=== PATIENT | male | born 1980 ===

== ENCOUNTER 2018-04-30 12:47 | Emergency (ER) | payer MEDICAID, OTHER ==
[2018-04-30 12:52] VITALS: BMI 24.3
[2018-04-30] MEDS ORDERED: Bacitracin 500 Units/gm Oint Foilpak UD TOP ONE (13:39)
[2018-04-30] MEDS ORDERED: Bacitracin 500 Units/gm Oint Foilpak UD ONE (13:48)
--- NOTE | 2018-04-30 13:51 | C.PDOC ---
Time Seen by Provider: 04/30/18 13:31 Chief Complaint (Nursing): Abnormal Skin Integrity History Per: Patient Onset/Duration Of Symptoms: Days (5) Current Symptoms Are (Timing): Still Present Location Of Injury: Right: Forearm Quality Of Symptoms: Painful, Swollen, Draining Severity: Moderate Additional History Per: Prior Records Past Medical History Reviewed: Historical Data, Nursing Documentation, Vital Signs Vital Signs: Last Vital Signs Temp 98.7 F 04/30/18 12:52 Pulse 106 H 04/30/18 12:52 Resp 20 04/30/18 12:52 BP 102/70 04/30/18 12:52 Pulse Ox 98 04/30/18 12:52 - Medical History PMH: Anxiety, Depression, Schizophrenia - [facility] Procedures VACCINATION NEC (10/31/14) Family History: States: Unknown Family Hx - Social History Hx Tobacco Use: Yes Hx Alcohol Use: Yes Hx Substance Use: Yes - Immunization History Hx Tetanus Toxoid Vaccination: No Hx Influenza Vaccination: No Hx Pneumococcal Vaccination: No Review Of Systems Except As Marked, All Systems Reviewed And Found Negative. Constitutional: Negative for: Fever, Weakness Cardiovascular: Negative for: Chest Pain Respiratory: Negative for: Shortness of Breath Gastrointestinal: Negative for: Vomiting, Abdominal Pain Musculoskeletal: Negative for: Neck Pain Neurological: Negative for: Weakness, Numbness Physical Exam - Physical Exam Appears: Non-toxic, No Acute Distress Skin: Warm Head: Atraumatic, Normacephalic Eye(s): bilateral: Normal Inspection, PERRL, EOMI Neck: Normal ROM, Supple Extremity: Normal ROM, Other (Boil on left forearm open, draining pus, with induration and surrounding erythema. No fluctuance.) Pulses: Left Radial: Normal Neurological/Psych: Oriented x3, Normal Motor, Normal Sensation ED Course And Treatment O2 Sat by Pulse Oximetry: 98 Pulse Ox Interpretation: Normal Disposition Counseled Patient/Family Regarding: Studies Performed, Diagnosis, Need For Followup, Rx Given - Disposition Disposition: HOME/ ROUTINE Disposition Time: 13:52 Condition: STABLE Additional Instructions: Follow up with your doctor. Return to the ER if you develop fever, worsening of symptoms or if you have any other concerns. Prescriptions: Cephalexin [Keflex] 500 mg PO QID #40 capsule Naproxen [Naprosyn] 1 tab PO BID PRN #20 tab PRN Reason: Pain Sulfamethoxazole/Trimethoprim [Bactrim DS 800 mg-160 mg] 1 tab PO BID #20 tab Instructions: Boil (DC) - Clinical Impression Clinical Impression: Boil of upper arm and forearm
[2018-04-30 14:07] VITALS: BP 126/83; PULSE 89; RESP 18; TEMP 98.3; O2SAT 97
== END 2018-04-30 13:55 | disposition home or self-care (01) ==
LOC: C.ER 12:47
DX: L02.424 Furuncle of left upper limb (principal)

== ENCOUNTER 2018-05-02 11:33 | Inpatient (IN) | payer MEDICAID ==
[2018-05-02 11:34] VITALS: BMI 24.3
[2018-05-02] MEDS ORDERED: Sodium Chloride 0.9% 1,000 ML IV ONE (12:05)
[2018-05-02] MEDS ORDERED: Vancomycin 1 GM 1 GM/250 ML BAG IV SCH (12:15)
[2018-05-02] MEDS ORDERED: Sodium Chloride 0.9% 1,000 ML ONE (12:27)
--- NOTE | 2018-05-02 12:29 | RAD ---
Date of service: 05/02/2018 HISTORY: SOB COMPARISON: Chest radiograph dated 11/26/2015. TECHNIQUE: Chest PA and lateral FINDINGS: LUNGS: No active pulmonary disease. PLEURA: No significant pleural effusion identified. No pneumothorax apparent. CARDIOVASCULAR: Normal. OSSEOUS STRUCTURES: No significant abnormalities. VISUALIZED UPPER ABDOMEN: Normal. OTHER FINDINGS: None. IMPRESSION: No active disease.
--- NOTE | 2018-05-02 12:35 | RAD ---
Date of service: 05/02/2018 PROCEDURE: Radiographs of the right elbow. HISTORY: cellulitis COMPARISON: No prior. FINDINGS: BONES: No acute fracture. Triceps tendon enthesophyte. JOINTS: Unremarkable. SOFT TISSUES: Soft tissue defect along the posterior proximal forearm. JOINT EFFUSION: None. OTHER FINDINGS: None. IMPRESSION: Soft tissue defect along the posterior proximal forearm. No demonstrated fracture, dislocation or evidence of periosteal reaction.
[2018-05-02 12:36] LABS: BASO % 0.6 % (0.0-2.0); EOS # 0.1 K/uL (0.0-0.7); EOS % 1.6 % (0.0-4.0); LYMPH # 1.2 K/uL (1.0-4.3); LYMPH % 21.3 % (20.0-40.0); MEAN CORPUSCULAR HEMOGLOBIN 30.2 pg (27.0-31.0); MEAN CORPUSCULAR HGB CONC 33.9 g/dL (33.0-37.0); MEAN PLATELET VOLUME 8.8 fL (7.2-11.7); MONO # 0.7 K/uL (0.0-0.8); NEUT # 3.6 K/uL (1.8-7.0); NEUT % 64.5 % (50.0-75.0); NRBC % 0.1 % (0.0-2.0); RBC 5.3 Mil/uL (4.40-5.90); RED CELL DISTRIBUTION WIDTH 13.5 % (11.5-14.5); WHITE BLOOD COUNT 5.5 K/uL (4.8-10.8)
[2018-05-02 12:40] LABS: SQUAMOUS EPITHIAL < 1 /hpf (0-5); URINE BILIRUBIN NEGATIVE (NEGATIVE); URINE BLOOD NEGATIVE (NEGATIVE); URINE CLARITY Clear (Clear); URINE COLOR Yellow (YELLOW); URINE GLUCOSE (UA) NORMAL (Normal); URINE LEUKOCYTE ESTERASE NEG Leu/uL (Negative); URINE PROTEIN 1+ mg/dL (NEGATIVE)
[2018-05-02 12:41] LABS: ALB/GLOB RATIO 1.3 (1.0-2.1); ALBUMIN 4.5 g/dL (3.5-5.0); ALT/SGPT 54 U/L (21-72); AST/SGOT 31 U/L (17-59); BLOOD UREA NITROGEN 11 mg/dL (9-20); CALCIUM 9.1 mg/dl (8.6-10.4); GFR AFRICAN-AMERICAN > 60; GFR NON-AFRICAN AMERICAN > 60
--- NOTE | 2018-05-02 12:41 | C.PDOC ---
History Of Present Illness 38-year-old male, presents to the emergency department with complaints of increased swelling and redness to the right elbow. Patient was seen two days ago , diagnosed with cellulitis of right elbow and discharged on Bactrim and Keflex , which he has been taking but notes increase redness, swelling and chills. Patient also developed diarrhea today, prompting visit. Time Seen by Provider: 05/02/18 11:58 Chief Complaint (Nursing): Abdominal Pain History Per: Patient History/Exam Limitations: no limitations Onset/Duration Of Symptoms: Days Current Symptoms Are (Timing): Still Present Severity: Moderate Quality Of Discomfort: Aching Associated Symptoms: Chills Recent travel outside of the [place]: No Past Medical History Reviewed: Historical Data, Nursing Documentation, Vital Signs Vital Signs: Last Vital Signs Temp 98 F 05/02/18 16:19 Pulse 75 05/02/18 16:19 Resp 20 05/02/18 16:19 BP 133/67 05/02/18 16:19 Pulse Ox 98 05/02/18 16:19 - Medical History PMH: Anxiety, Depression, Schizophrenia - [facility] Procedures VACCINATION NEC (10/31/14) Family History: States: No Known Family Hx - Social History Hx Tobacco Use: Yes Hx Alcohol Use: Yes Hx Substance Use: Yes - Immunization History Hx Tetanus Toxoid Vaccination: No Hx Influenza Vaccination: No Hx Pneumococcal Vaccination: No Review Of Systems Constitutional: Positive for: Chills. Negative for: Fever Gastrointestinal: Positive for: Diarrhea. Negative for: Nausea, Vomiting Physical Exam - Physical Exam Appears: Non-toxic, No Acute Distress Skin: Warm, Dry, No Rash, Other ( swelling and 3cm ulcer with surrounding erythema ascending to the upper arm consistent with cellulitis) Head: Atraumatic, Normacephalic Eye(s): bilateral: Normal Inspection, PERRL, EOMI Nose: Normal Oral Mucosa: Moist Lips: Normal Appearing Neck: Normal ROM Chest: Symmetrical Cardiovascular: Rhythm Regular, No Murmur Respiratory: Normal Breath Sounds, No Accessory Muscle Use Gastrointestinal/Abdominal: Normal Exam, No Tenderness Extremity: Normal ROM, No Deformity, Swelling (right elbow) Neurological/Psych: Oriented x3, Normal Speech ED Course And Treatment - Laboratory Results Result Diagrams: 05/02/18 12:22 05/02/18 12:22 Lab Interpretation: Normal O2 Sat by Pulse Oximetry: 98 (RA) Pulse Ox Interpretation: Normal Progress Note: Treated with vancomycin IV and IVF NSS Reassessment Condition: Improved - Physician Consult Information Physician Contacted: Елена Hanson Outcome Of Conversation: admit Disposition Discussed With : Елена Hnason Doctor Will See Patient In The: Hospital - Disposition Disposition: HOSPITALIZED Disposition Time: 14:00 Condition: STABLE - POA Present On Arrival: None - Clinical Impression Clinical Impression: Cellulitis, Boil of upper arm and forearm - Scribe Statement The provider has reviewed the documentation as recorded by the Scribe (Rossana Barbosa) All medical record entries made by the Scribe were at my direction and personally dictated by me. I have reviewed the chart and agree that the record accurately reflects my personal performance of the history, physical exam, medical decision making, and the department course for this patient. I have also personally directed, reviewed, and agree with the discharge instructions and disposition. Decision To Admit - Pt Status Changed To: Hospital Disposition Of: Inpatient - Admit Certification Admit to Inpatient:: After my assessment, the patient will require hospitalization for at least two midnights. This is because of the severity of symptoms shown, intensity of services needed, and/or the medical risk in this patient being treated as an outpatient. - InPatient: Physician Admission Certification:: Cellulitis. Failed antibiotics - . Bed Request Type: Regular Admitting Physician: Елена Hanson Patient Diagnosis: Cellulitis, Boil of upper arm and forearm
[2018-05-02] MEDS ORDERED: Vancomycin 1 gm/NS 200 ml 1 GM/200 ML BAG IVPB ONE (13:00)
[2018-05-02] MEDS ORDERED: Pneumococcal 23-Valent Vaccine IM ONE (17:04)
--- NOTE | 2018-05-02 17:08 | CP.PCM.CON ---
History of Present Illness - History of Present Illness History of Present Illness: INFECTIOUS DISEASE CONSULT; CC: R elbow abscess HPI: 38M w. pmh of asthma, herniated disk L4-L5, and extensive psych hx , depression and schizophrenia and anxiety problems who presents to ED with worsening abscess /cellulitis to R elbow. Pt states that on April 25 he was cleaning out house and was bit by bug on R elbow. But bite eventually evolved from pimple like bump to cellulitis with accompanied swelling extending down to hand. He states that it was very painful and prompted him to come to ED on 04/30/18 where he was given Bactrim and Keflex. The swelling/edema in his hand resolved, however abscess developed in elbow draining pus prompting him to return to hospital today. He denies F/C. No N/V. He denies numbness parethesias in his hand. wound cultures reported from 04/30/18 are positive for MRSA. INFECTIOUS DISEASE CONSULT REQUESTED BY DR. Tiffany VELASCO FOR MRSA ABSCESS-RIGHT ELBOW. PATIENT DENIES ANY FEVER OR CHILLS. PMH: Anxiety, Depression, Schizophrenia - [facility] Procedures VACCINATION NEC (10/31/14) Family History: States: No Known Family Hx - Social History Hx Tobacco Use: Yes Hx Alcohol Use: Yes Hx Substance Use: Yes - Immunization History Hx Tetanus Toxoid Vaccination: No Hx Influenza Vaccination: No Hx Pneumococcal Vaccination: No Review of Systems - Constitutional Constitutional: absent: Chills, Fever - EENT Nose/Mouth/Throat: absent: Sore Throat - Cardiovascular Cardiovascular: absent: Chest Pain, Dyspnea - Respiratory Respiratory: absent: Cough - Gastrointestinal Gastrointestinal: absent: Diarrhea, Nausea, Vomiting - Genitourinary Genitourinary: absent: Dysuria - Neurological Neurological: absent: Headaches - Hematologic/Lymphatic Hematologic: As Per HPI. absent: Easy Bruising, Lymphadenopathy Past Patient History - Past Medical History & Family History Past Medical History?: Yes - Past Social History Smoking Status: Heavy Smoker > 10 Cigarettes Daily - CARDIAC Hx Cardiac Disorders: No Hx Hypertension: No - PULMONARY Hx Respiratory Disorders: Yes Hx Asthma: Yes Hx Tuberculosis: No - NEUROLOGICAL Hx Neurological Disorder: Yes Hx Seizures: Yes (due to ETOH) Other/Comment: ETOH, last drink 04/25/18 as per pt - HEENT Hx HEENT Problems: No - RENAL Hx Chronic Kidney Disease: No - ENDOCRINE/METABOLIC Hx Endocrine Disorders: No - HEMATOLOGICAL/ONCOLOGICAL Hx Blood Disorders: No Hx Human Immunodeficiency Virus (HIV): No - INTEGUMENTARY Hx Dermatological Problems: Yes Hx Cellulitis: Yes (Right elbow) - MUSCULOSKELETAL/RHEUMATOLOGICAL Hx Musculoskeletal Disorders: Yes Hx Arthritis: Yes (B/L knees) Hx Back Pain: Yes (herniated disks L4-L5) Hx Falls: Yes (has bad knees) - GASTROINTESTINAL Hx Gastrointestinal Disorders: Yes Hx Diarrhea: Yes - GENITOURINARY/GYNECOLOGICAL Hx Genitourinary Disorders: No Hx Sexually Transmitted Disorders: No - PSYCHIATRIC Hx Psychophysiologic Disorder: Yes Hx Anxiety: Yes Hx Bipolar Disorder: Yes Hx Depression: Yes Hx Post Traumatic Stress Disorder: Yes Hx Schizophrenia: Yes Hx Substance Use: Yes (ETOH) - SURGICAL HISTORY Hx Surgeries: No - ANESTHESIA Hx Anesthesia: No Meds Allergies/Adverse Reactions: Allergies Allergy/AdvReac Type Severity Reaction Status Date / Time No Known Allergies Allergy Verified 11/26/15 14:44 - Medications Medications: Current Medications Albuterol/Ipratropium (Duoneb 3 Mg/0.5 Mg (3 Ml) Ud) 3 ml INH RQ6 SOTO Diphenhydramine HCl (Benadryl) 50 mg PO Q6 PRN PRN Reason: Extra pyramidal symptoms Fluoxetine HCl (Prozac) 20 mg PO DAILY SOTO Haloperidol (Haldol) 5 mg PO Q8 PRN PRN Reason: Agitation Vancomycin/Sodium Chloride (Vancomycin 1 Gm/Ns 200 Ml) 1 gm in 200 mls @ 133.333 mls/hr IVPB Q12H SOTO PRN Reason: Protocol Stop: 05/07/18 17:01 Nicotine (Nicoderm Cq) 1 patch TD DAILY SOTO Pantoprazole Sodium (Protonix Inj) 40 mg IVP DAILY [facility] Pneumococcal Polyvalent Vaccine (Pneumovax 23 Vaccine) 0.5 ml IM .ONCE ONE Stop: 05/02/18 17:05 Trazodone HCl (Desyrel) 50 mg PO HS SOTO Physical Exam - Constitutional Appears: No Acute Distress - Eye Exam Eye Exam: EOMI, PERRL - ENT Exam ENT Exam: Normal Oropharynx - Neck Exam Neck exam: Positive for: Normal Inspection - Respiratory Exam Respiratory Exam: Clear to Auscultation Bilateral - Cardiovascular Exam Cardiovascular Exam: REGULAR RHYTHM, +S1, +S2 - GI/Abdominal Exam GI & Abdominal Exam: Normal Bowel Sounds, Soft. absent: Organomegaly, Tenderness - Extremities Exam Extremities exam: Positive for: normal capillary refill (RIGHT ELBOW WITH AN ULCER DRAINING SEROSANGUINEOUS DRAINAGE. SURROUNDING ERYTHEMA), pedal pulses present. Negative for: calf tenderness, pedal edema - Neurological Exam Neurological exam: Alert, CN II-XII Intact, Oriented x3, Reflexes Normal - Psychiatric Exam Psychiatric exam: Normal Mood - Skin Skin Exam: Normal Color, Warm Results - Vital Signs Recent Vital Signs: Last Vital Signs Temp 98 F 05/02/18 16:19 Pulse 75 05/02/18 16:19 Resp 20 05/02/18 16:19 BP 133/67 05/02/18 16:19 Pulse Ox 98 05/02/18 16:19 - Labs Result Diagrams: 05/02/18 12:22 05/02/18 12:22 Labs: Laboratory Results - last 24 hr 05/02/18 05/02/18 05/02/18 12:22 12:22 12:27 WBC 5.5 RBC 5.30 Hgb 16.0 Hct 47.1 MCV 89.0 D MCH 30.2 MCHC 33.9 RDW 13.5 Plt Count 209 MPV 8.8 Neut % (Auto) 64.5 Lymph % (Auto) 21.3 [place] % (Auto) 12.0 H Eos % (Auto) 1.6 Baso % (Auto) 0.6 Neut # (Auto) 3.6 Lymph # (Auto) 1.2 [place] # (Auto) 0.7 Eos # (Auto) 0.1 Baso # (Auto) 0.0 Sodium 143 Potassium 4.3 Chloride 104 Carbon Dioxide 24 Anion Gap 19 BUN 11 Creatinine 0.9 Est GFR ( Amer) > 60 Est GFR (Non-Af Amer) > 60 Random Glucose 109 Calcium 9.1 Total Bilirubin 0.8 AST 31 ALT 54 Alkaline Phosphatase 86 Total Protein 7.8 Albumin 4.5 Globulin 3.3 Albumin/Globulin Ratio 1.3 Urine Color Yellow Urine Clarity Clear Urine pH 5.0 Ur Specific [place] 1.028 Urine Protein 1+ H Urine Glucose (UA) Normal Urine Ketones Negative Urine Blood Negative Urine Nitrate Negative Urine Bilirubin Negative Urine Urobilinogen 4.0 Ur Leukocyte Esterase Neg Urine WBC (Auto) < 1 Urine RBC (Auto) 1 Ur Squamous Epith Cells < 1 - Imaging and Cardiology x-ray elbow right Status: Report reviewed by me Assessment & Plan (1) Boil of upper arm and forearm Status: Acute (2) Cellulitis Status: Acute (3) Depression Status: Acute (4) Musculoskeletal pain Status: Acute - Assessment and Plan (Free Text) Plan: pancultures. wound cultures right elbow ulcer. mrsa screen nares ESR CRP. THREE-PHASE BONE SCAN RIGHT ELBOW FOREARM R/O OSTEOMYELITIS CONTINUE iv VANCOMYCIN 1 G EVERY 12 HOURLY 05/02/18. ADD iv ROCEPHIN 1 G EVERY 24 HOURLY FOR NOW 05/02/18 WHILE AWAITING REPEAT CULTURES. fOLLOW-UP VANCO TROUGH LEVELS PRIOR TO THE FOURTH DOSE AND KEEP THEM BETWEEN 10 AND 20. SURGICAL CONSULT IN PROGRESS. LWC PER SURGERY. tdap 0.5 mL IM today. WILL FOLLOW ALONG WITH YOU AND MAKE FURTHER RECOMMENDATIONS NEEDED.
[2018-05-02] MEDS: Vancomycin 1 gm/NS 200 ml 1 GM/200 ML BAG IVPB SCH (17:34)
--- NOTE | 2018-05-02 18:38 | CP.PCM.CON ---
History of Present Illness - History of Present Illness History of Present Illness: Surgery: Dr. Damian CC: R elbow abscess HPI: 38M w. pmh of asthma, herniated disk L4-L5, and extensive psych hx presents to ED with worsening abscess/cellulitis to R elbow. Pt states that on April 25 he was cleaning out house and was bit by bug on R elbow. But bite eventually evolved from pimple like bump to cellulitis with accompanied swelling extending down to hand. He states that it was very painful and prompted him to come to ED this past monday where he was given Bactrim and Keflex. The swelling/edema in his hand resolved, however abscess developed in elbow draining pus prompting him to return to hospital today. He denies F/C. No N/V. He denies numbness parethesias in his hand. PMH: See above PSH: none Meds: MAR reviewed NKDA SOcial: +ETOH/tobaco, no drugs Fhx: non-contributory Review of Systems - Review of Systems All systems: reviewed and no additional remarkable complaints except (HPI) Past Patient History - Past Medical History & Family History Past Medical History?: Yes - Past Social History Smoking Status: Heavy Smoker > 10 Cigarettes Daily - CARDIAC Hx Cardiac Disorders: No Hx Hypertension: No - PULMONARY Hx Respiratory Disorders: Yes Hx Asthma: Yes Hx Tuberculosis: No - NEUROLOGICAL Hx Neurological Disorder: Yes Hx Seizures: Yes (due to ETOH) Other/Comment: ETOH, last drink 04/25/18 as per pt - HEENT Hx HEENT Problems: No - RENAL Hx Chronic Kidney Disease: No - ENDOCRINE/METABOLIC Hx Endocrine Disorders: No - HEMATOLOGICAL/ONCOLOGICAL Hx Blood Disorders: No Hx Human Immunodeficiency Virus (HIV): No - INTEGUMENTARY Hx Dermatological Problems: Yes Hx Cellulitis: Yes (Right elbow) - MUSCULOSKELETAL/RHEUMATOLOGICAL Hx Musculoskeletal Disorders: Yes Hx Arthritis: Yes (B/L knees) Hx Back Pain: Yes (herniated disks L4-L5) Hx Falls: Yes (has bad knees) - GASTROINTESTINAL Hx Gastrointestinal Disorders: Yes Hx Diarrhea: Yes - GENITOURINARY/GYNECOLOGICAL Hx Genitourinary Disorders: No Hx Sexually Transmitted Disorders: No - PSYCHIATRIC Hx Anxiety: Yes Hx Depression: Yes Hx Schizophrenia: Yes Hx Substance Use: Yes - SURGICAL HISTORY Hx Surgeries: No - ANESTHESIA Hx Anesthesia: No Meds Allergies/Adverse Reactions: Allergies Allergy/AdvReac Type Severity Reaction Status Date / Time No Known Allergies Allergy Verified 11/26/15 14:44 - Medications Medications: Current Medications Albuterol/Ipratropium (Duoneb 3 Mg/0.5 Mg (3 Ml) Ud) 3 ml INH RQ6 SOTO Diphenhydramine HCl (Benadryl) 50 mg PO Q6 PRN PRN Reason: Extra pyramidal symptoms Fluoxetine HCl (Prozac) 20 mg PO DAILY SOTO Haloperidol (Haldol) 5 mg PO Q8 PRN PRN Reason: Agitation Vancomycin/Sodium Chloride (Vancomycin 1 Gm/Ns 200 Ml) 1 gm in 200 mls @ 133.333 mls/hr IVPB Q12H SOTO PRN Reason: Protocol Stop: 05/07/18 17:01 Last Admin: 05/02/18 17:34 Dose: 133.333 mls/hr Ceftriaxone Sodium 1 gm/ (Sodium Chloride) 100 mls @ 100 mls/hr IVPB Q24H SOTO PRN Reason: Protocol Nicotine (Nicoderm Cq) 1 patch TD DAILY [facility] Last Admin: 05/02/18 17:45 Dose: 1 patch Pantoprazole Sodium (Protonix Inj) 40 mg IVP DAILY [facility] Last Admin: 05/02/18 17:45 Dose: 40 mg Trazodone HCl (Desyrel) 50 mg PO HS [facility] Physical Exam - Constitutional Appears: Non-toxic, No Acute Distress - Head Exam Head Exam: ATRAUMATIC, NORMOCEPHALIC - Eye Exam Eye Exam: EOMI - ENT Exam ENT Exam: Mucous Membranes Moist - Neck Exam Neck exam: Positive for: Full Rom - Respiratory Exam Respiratory Exam: NORMAL BREATHING PATTERN. absent: Accessory Muscle Use, Respiratory Distress - GI/Abdominal Exam GI & Abdominal Exam: Soft. absent: Distended, Firm, Guarding, Tenderness - Extremities Exam Additional comments: R elbow abscess ~1x1 cm with surrounding cellulitis and erythema, tender to touch, thick purulent material expressed on palpation, no odor, majority of exudate removed from wound site, sensation and motor fxn intact in distal extremity, distal pulses palpable - Neurological Exam Neurological exam: Alert, Oriented x3 - Skin Skin Exam: Dry, Warm Results - Vital Signs Recent Vital Signs: Last Vital Signs Temp 98 F 05/02/18 16:19 Pulse 75 05/02/18 16:19 Resp 20 05/02/18 16:19 BP 133/67 05/02/18 16:19 Pulse Ox 98 05/02/18 18:02 - Labs Result Diagrams: 05/02/18 12:22 05/02/18 12:22 Labs: Laboratory Results - last 24 hr 05/02/18 05/02/18 05/02/18 12:22 12:22 12:27 WBC 5.5 RBC 5.30 Hgb 16.0 Hct 47.1 MCV 89.0 D MCH 30.2 MCHC 33.9 RDW 13.5 Plt Count 209 MPV 8.8 Neut % (Auto) 64.5 Lymph % (Auto) 21.3 [place] % (Auto) 12.0 H Eos % (Auto) 1.6 Baso % (Auto) 0.6 Neut # (Auto) 3.6 Lymph # (Auto) 1.2 [place] # (Auto) 0.7 Eos # (Auto) 0.1 Baso # (Auto) 0.0 Sodium 143 Potassium 4.3 Chloride 104 Carbon Dioxide 24 Anion Gap 19 BUN 11 Creatinine 0.9 Est GFR ( Amer) > 60 Est GFR (Non-Af Amer) > 60 Random Glucose 109 Calcium 9.1 Total Bilirubin 0.8 AST 31 ALT 54 Alkaline Phosphatase 86 Total Protein 7.8 Albumin 4.5 Globulin 3.3 Albumin/Globulin Ratio 1.3 Urine Color Yellow Urine Clarity Clear Urine pH 5.0 Ur Specific [place] 1.028 Urine Protein 1+ H Urine Glucose (UA) Normal Urine Ketones Negative Urine Blood Negative Urine Nitrate Negative Urine Bilirubin Negative Urine Urobilinogen 4.0 Ur Leukocyte Esterase Neg Urine WBC (Auto) < 1 Urine RBC (Auto) 1 Ur Squamous Epith Cells < 1 Assessment & Plan - Assessment and Plan (Free Text) Assessment: 38M w. R elbow abscess/cellulitis -wet to dry dressing with betadine -c/w abx -will monitor closely -d/w attending Zemaitis PGY4
[2018-05-02] MEDS ORDERED: Tdap Vaccine 0.5 ml Vial (10-64 yrs) IM ONE (19:15)
[2018-05-02] MEDS: Albuterol-Ipratrop 3 mg / 0.5 (3 ml) UD INH SCH (20:36)
--- NOTE | 2018-05-02 20:45 | CP.PCM.HP ---
History of Present Illness - History of Present Illness History of Present Illness: CC: R elbow abscess HPI: 38M w. pmh of asthma, herniated disk L4-L5, and extensive psych hx presents to ED with worsening abscess/cellulitis to R elbow. Pt states that on April 25 he was cleaning out house and was bit by bug on R elbow. But bite eventually evolved from pimple like bump to cellulitis with accompanied swelling extending down to hand. He states that it was very painful and prompted him to come to ED this past monday where he was given Bactrim and Keflex. culture showed mrsa sensitive to bactrim but didnot get better.The swelling/edema in his hand resolved, however abscess developed in elbow draining pus prompting him to return to hospital today. He denies F/C. No N/V. He denies numbness parethesias in his hand. PMH: See above PSH: none Meds: MAR reviewed NKDA SOcial: +ETOH/tobaco, no drugs Fhx: non-contributory Past Patient History - Past Medical History & Family History Past Medical History?: Yes - Past Social History Smoking Status: Heavy Smoker > 10 Cigarettes Daily - CARDIAC Hx Cardiac Disorders: No Hx Hypertension: No - PULMONARY Hx Respiratory Disorders: Yes Hx Asthma: Yes Hx Tuberculosis: No - NEUROLOGICAL Hx Neurological Disorder: Yes Hx Seizures: Yes (due to ETOH) Other/Comment: ETOH, last drink 04/25/18 as per pt - HEENT Hx HEENT Problems: No - RENAL Hx Chronic Kidney Disease: No - ENDOCRINE/METABOLIC Hx Endocrine Disorders: No - HEMATOLOGICAL/ONCOLOGICAL Hx Blood Disorders: No Hx Human Immunodeficiency Virus (HIV): No - INTEGUMENTARY Hx Dermatological Problems: Yes Hx Cellulitis: Yes (Right elbow) - MUSCULOSKELETAL/RHEUMATOLOGICAL Hx Musculoskeletal Disorders: Yes Hx Arthritis: Yes (B/L knees) Hx Back Pain: Yes (herniated disks L4-L5) Hx Falls: Yes (has bad knees) - GASTROINTESTINAL Hx Gastrointestinal Disorders: Yes Hx Diarrhea: Yes - GENITOURINARY/GYNECOLOGICAL Hx Genitourinary Disorders: No Hx Sexually Transmitted Disorders: No - PSYCHIATRIC Hx Psychophysiologic Disorder: Yes Hx Anxiety: Yes Hx Bipolar Disorder: Yes Hx Depression: Yes Hx Post Traumatic Stress Disorder: Yes Hx Schizophrenia: Yes Hx Substance Use: Yes (ETOH) - SURGICAL HISTORY Hx Surgeries: No - ANESTHESIA Hx Anesthesia: No Meds Allergies/Adverse Reactions: Allergies Allergy/AdvReac Type Severity Reaction Status Date / Time No Known Allergies Allergy Verified 11/26/15 14:44 Physical Exam - Constitutional Appears: Well - Head Exam Head Exam: ATRAUMATIC, NORMAL INSPECTION, NORMOCEPHALIC - Eye Exam Eye Exam: EOMI, Normal appearance, PERRL Pupil Exam: NORMAL ACCOMODATION, PERRL - ENT Exam ENT Exam: Mucous Membranes Moist, Normal Exam - Neck Exam Neck exam: Positive for: Normal Inspection - Respiratory Exam Respiratory Exam: Decreased Breath Sounds - Cardiovascular Exam Cardiovascular Exam: REGULAR RHYTHM, +S1, +S2 - GI/Abdominal Exam GI & Abdominal Exam: Diminished Bowel Sounds, Soft - Rectal Exam Rectal Exam: Deferred Results - Vital Signs Recent Vital Signs: Last Vital Signs Temp 98 F 05/02/18 16:19 Pulse 70 05/02/18 20:36 Resp 20 05/02/18 16:19 BP 133/67 05/02/18 16:19 Pulse Ox 98 05/02/18 18:02 - Labs Result Diagrams: 05/02/18 12:22 05/02/18 12:22 Labs: Laboratory Results - last 24 hr 05/02/18 05/02/18 05/02/18 12:22 12:22 12:27 WBC 5.5 RBC 5.30 Hgb 16.0 Hct 47.1 MCV 89.0 D MCH 30.2 MCHC 33.9 RDW 13.5 Plt Count 209 MPV 8.8 Neut % (Auto) 64.5 Lymph % (Auto) 21.3 [place] % (Auto) 12.0 H Eos % (Auto) 1.6 Baso % (Auto) 0.6 Neut # (Auto) 3.6 Lymph # (Auto) 1.2 [place] # (Auto) 0.7 Eos # (Auto) 0.1 Baso # (Auto) 0.0 Sodium 143 Potassium 4.3 Chloride 104 Carbon Dioxide 24 Anion Gap 19 BUN 11 Creatinine 0.9 Est GFR ( Amer) > 60 Est GFR (Non-Af Amer) > 60 Random Glucose 109 Calcium 9.1 Total Bilirubin 0.8 AST 31 ALT 54 Alkaline Phosphatase 86 Total Protein 7.8 Albumin 4.5 Globulin 3.3 Albumin/Globulin Ratio 1.3 Urine Color Yellow Urine Clarity Clear Urine pH 5.0 Ur Specific [place] 1.028 Urine Protein 1+ H Urine Glucose (UA) Normal Urine Ketones Negative Urine Blood Negative Urine Nitrate Negative Urine Bilirubin Negative Urine Urobilinogen 4.0 Ur Leukocyte Esterase Neg Urine WBC (Auto) < 1 Urine RBC (Auto) 1 Ur Squamous Epith Cells < 1
[2018-05-03] MEDS: Albuterol-Ipratrop 3 mg / 0.5 (3 ml) UD INH SCH ×4 (02:13→19:44)
[2018-05-03] MEDS: Vancomycin 1 gm/NS 200 ml 1 GM/200 ML BAG IVPB SCH ×2 (05:28→18:05)
[2018-05-03 08:54] LABS: BASO % 0.4 % (0.0-2.0); EOS # 0.1 K/uL (0.0-0.7); EOS % 0.6 % (0.0-4.0); HEMOGLOBIN 14.4 g/dL (12.0-18.0); LYMPH # 1.1 K/uL (1.0-4.3); LYMPH % 12.8 % (20.0-40.0); MEAN CELL VOLUME 88.5 fL (80.0-94.0); MEAN CORPUSCULAR HEMOGLOBIN 30.6 pg (27.0-31.0); MEAN CORPUSCULAR HGB CONC 34.5 g/dL (33.0-37.0); MONO # 0.8 K/uL (0.0-0.8); MONO % 8.6 % (0.0-10.0); NEUT # 6.8 K/uL (1.8-7.0); NEUT % 77.6 % (50.0-75.0); RBC 4.71 Mil/uL (4.40-5.90); RED CELL DISTRIBUTION WIDTH 13.4 % (11.5-14.5); WHITE BLOOD COUNT 8.8 K/uL (4.8-10.8)
[2018-05-03 09:13] LABS: BLOOD UREA NITROGEN 8 mg/dL (9-20); CALCIUM 8.8 mg/dl (8.6-10.4); GFR AFRICAN-AMERICAN > 60; GFR NON-AFRICAN AMERICAN > 60
--- NOTE | 2018-05-03 14:05 | CP.PCM.PN ---
Subjective - Date & Time of Evaluation Date of Evaluation: 05/03/18 Time of Evaluation: 10:00 - Subjective Subjective: clinically same Objective - Vital Signs/Intake and Output Vital Signs (last 24 hours): Temp Pulse Resp BP Pulse Ox 99.7 F H 85 20 129/75 97 05/03/18 07:00 05/03/18 07:00 05/03/18 07:00 05/03/18 07:00 05/03/18 07:00 - Medications Medications: Current Medications Albuterol/Ipratropium (Duoneb 3 Mg/0.5 Mg (3 Ml) Ud) 3 ml INH RQ6 SOTO Last Admin: 05/03/18 07:52 Dose: 3 ml Diphenhydramine HCl (Benadryl) 50 mg PO Q6 PRN PRN Reason: Extra pyramidal symptoms Fluoxetine HCl (Prozac) 20 mg PO DAILY [facility] Last Admin: 05/03/18 10:04 Dose: 20 mg Haloperidol (Haldol) 5 mg PO Q8 PRN PRN Reason: Agitation Heparin Sodium (Porcine) (Heparin) 5,000 units SC Q12 SOTO Last Admin: 05/03/18 10:04 Dose: 5,000 units Vancomycin/Sodium Chloride (Vancomycin 1 Gm/Ns 200 Ml) 1 gm in 200 mls @ 133.333 mls/hr IVPB Q12H SOTO PRN Reason: Protocol Stop: 05/07/18 17:01 Last Admin: 05/03/18 05:28 Dose: 133.333 mls/hr Ceftriaxone Sodium 1 gm/ (Sodium Chloride) 100 mls @ 100 mls/hr IVPB Q24H SOTO PRN Reason: Protocol Last Admin: 05/02/18 19:22 Dose: 100 mls/hr Nicotine (Nicoderm Cq) 1 patch TD DAILY [facility] Last Admin: 05/03/18 10:04 Dose: 1 patch Pantoprazole Sodium (Protonix Inj) 40 mg IVP DAILY [facility] Last Admin: 05/03/18 10:04 Dose: 40 mg Trazodone HCl (Desyrel) 50 mg PO HS [facility] Last Admin: 05/02/18 21:36 Dose: 50 mg - Labs Labs: 05/03/18 08:32 05/03/18 08:42 - Constitutional Appears: Well - Head Exam Head Exam: ATRAUMATIC, NORMAL INSPECTION, NORMOCEPHALIC - Eye Exam Eye Exam: EOMI, Normal appearance, PERRL Pupil Exam: NORMAL ACCOMODATION, PERRL - ENT Exam ENT Exam: Mucous Membranes Moist, Normal Exam - Neck Exam Neck Exam: Full ROM, Normal Inspection. absent: Lymphadenopathy - Respiratory Exam Respiratory Exam: Decreased Breath Sounds - Cardiovascular Exam Cardiovascular Exam: REGULAR RHYTHM, +S1, +S2 - GI/Abdominal Exam GI & Abdominal Exam: Soft, Diminished Bowel Sounds - Rectal Exam Rectal Exam: Deferred
--- NOTE | 2018-05-03 14:56 | NM ---
Date of service: 05/03/2018 PROCEDURE: Three-phase bone scan HISTORY: rt.elbow ulcer r/o om COMPARISON: May 02, 2018. Right elbow radiographs TECHNIQUE: Following administration of 21.6 miCu of Tc MDP three-phase study performed attention right elbow per institutional protocol. FINDINGS: Flow component: Unremarkable Blood pool component: Focal accumulation of radionuclide in the soft tissues is lateral aspect of the elbow and posterior forearm. Delayed images at 3:00: Symmetric activity in both upper extremities Other findings: None. IMPRESSION: No evidence of acute osseous process. No evidence of osteomyelitis. There soft tissue uptake adjacent to the proximal right radius and ulna.
--- NOTE | 2018-05-03 15:06 | CP.PCM.PN ---
Subjective - Date & Time of Evaluation Date of Evaluation: 05/03/18 Time of Evaluation: 09:00 - Subjective Subjective: PGY2 Medicine Note for Dr. Tiffany Hanson Patient is a 38 year old with a past medical history of asthma, herniated disk L4-L5, depression, schizophrenia and anxiety presenting for worsening cellulitis of his right elbow. He states that he was cleaning his aunt's house on April 25 and was bit by a bug on his R elbow. He believes it was a Brown Recluse Spider as his aunt has attempted to kill them in the past and he found brown spiders in her attic. He was seen in the ED on Monday and was treated with Bactrim and Keflex. Patient states that he has noticed increased redness, swelling and formation of an abscess that caused him to come back to the hospital. He also reports diarrhea. He denies fevers, chills, nausea, vomiting, chest pain, shortness of breath, palpitations, abdominal pain, numbness or tingling. PMH: asthma, herniated disk L4-L5, depression, schizophrenia and anxiety PSH: none Family: non-contributory Social: admits to tobacco/alcohol, denies illicit drug use Allergies: NKDA Objective - Vital Signs/Intake and Output Vital Signs (last 24 hours): Temp Pulse Resp BP Pulse Ox 99.7 F H 85 20 129/75 97 05/03/18 07:00 05/03/18 07:00 05/03/18 07:00 05/03/18 07:00 05/03/18 07:00 Intake and Output: 05/03/18 05/03/18 06:59 18:59 Intake Total 400 Balance 400 - Medications Medications: Current Medications Albuterol/Ipratropium (Duoneb 3 Mg/0.5 Mg (3 Ml) Ud) 3 ml INH RQ6 SOTO Last Admin: 05/03/18 14:05 Dose: Not Given Diphenhydramine HCl (Benadryl) 50 mg PO Q6 PRN PRN Reason: Extra pyramidal symptoms Fluoxetine HCl (Prozac) 20 mg PO DAILY [facility] Last Admin: 05/03/18 10:04 Dose: 20 mg Haloperidol (Haldol) 5 mg PO Q8 PRN PRN Reason: Agitation Heparin Sodium (Porcine) (Heparin) 5,000 units SC Q12 SOTO Last Admin: 05/03/18 10:04 Dose: 5,000 units Vancomycin/Sodium Chloride (Vancomycin 1 Gm/Ns 200 Ml) 1 gm in 200 mls @ 133.333 mls/hr IVPB Q12H SOTO PRN Reason: Protocol Stop: 05/07/18 17:01 Last Admin: 05/03/18 05:28 Dose: 133.333 mls/hr Ceftriaxone Sodium 1 gm/ (Sodium Chloride) 100 mls @ 100 mls/hr IVPB Q24H SOTO PRN Reason: Protocol Last Admin: 05/02/18 19:22 Dose: 100 mls/hr Ketorolac Tromethamine (Toradol) 30 mg IVP STAT STA Stop: 05/03/18 15:06 Nicotine (Nicoderm Cq) 1 patch TD DAILY [facility] Last Admin: 05/03/18 10:04 Dose: 1 patch Pantoprazole Sodium (Protonix Inj) 40 mg IVP DAILY [facility] Last Admin: 05/03/18 10:04 Dose: 40 mg Trazodone HCl (Desyrel) 50 mg PO HS [facility] Last Admin: 05/02/18 21:36 Dose: 50 mg - Labs Labs: 05/03/18 08:32 05/03/18 08:42 - Constitutional Appears: Non-toxic, No Acute Distress - Head Exam Head Exam: ATRAUMATIC, NORMOCEPHALIC - Eye Exam Eye Exam: EOMI, Normal appearance, PERRL Pupil Exam: NORMAL ACCOMODATION - ENT Exam ENT Exam: Mucous Membranes Moist, Normal Exam - Neck Exam Neck Exam: absent: Lymphadenopathy - Respiratory Exam Respiratory Exam: Clear to Ausculation Bilateral, NORMAL BREATHING PATTERN. absent: Accessory Muscle Use, Rales, Rhonchi, Wheezes, Respiratory Distress - Cardiovascular Exam Cardiovascular Exam: REGULAR RHYTHM, +S1, +S2 - Extremities Exam Additional comments: Right UE - dressing on right elbow. Area of erythema surround wound with packing in center. tender to palpation. - Neurological Exam Neurological Exam: Alert, Awake, CN II-XII Intact, Oriented x3 Neuro motor strength exam: Left Upper Extremity: 5, Right Upper Extremity: 5, Left Lower Extremity: 5, Right Lower Extremity: 5 - Psychiatric Exam Psychiatric exam: Normal Affect, Normal Mood - Skin Skin Exam: Dry, Normal Color, Warm Additional comments: except right upper extremity Assessment and Plan - Assessment and Plan (Free Text) Plan: Right Elbow Abscess/Cellulitis Surgery Consulted, Dr. Damian ID consulted, Dr. Murillo * abx per ID * Rocephin 1gm IVPB q24h (started 05/02/18) * Vanco 1,350mg IVPB q12h (started 05/02/18) Wound Culture 04/30/18: * MRSA Blood Culture 05/02/18: negative at 24 hours x 2 Wound Culture 05/02/18: pending Right Elbow X-ray 05/02/18: Soft tissue defect along the posterior proximal forearm. No demonstrated fracture, dislocation or evidence of periosteal reaction. Three Phase Bone Scan 05/03/18: No evidence of acute osseous process. No evidence of osteomyelitis. There soft tissue uptake adjacent to the proximal right radius and ulna. Meds: * Rocephin 1gm IVPB q24h (started 05/02/18) * Vanco 1,350mg IVPB q12h (started 05/02/18) * Benadryl 50mg PO q6h prn hx of Asthma * Duonebs 3mL INH q6h Psych hx hx of depression, schizophrenia and anxiety * Restarted home Prozac 20mg PO daily * Trazodone 50mg PO HS * Haldol 5mg PO q8h prn hx of Tobacco use * Nicotine patch 21mg/24hr TD daily Prophylactic Care * Heparin 5,000units SC q12h * Protonix 40mg IVP daily Case discussed with Dr. Tiffany Hanson All medical management per Dr. Tiffany Aburto Esperanza PGY2
--- NOTE | 2018-05-03 19:48 | CP.PCM.PN ---
Subjective - Date & Time of Evaluation Date of Evaluation: 05/03/18 Time of Evaluation: 19:48 - Subjective Subjective: TMAX 99.7. C/O PAIN RT. ELBOW +VE DRESSING IN PLACE. C/O PAIN SUGAR AT SITE OF INJ : SUGAR WARM /ERYTHEMATOUS Objective - Vital Signs/Intake and Output Vital Signs (last 24 hours): Temp Pulse Resp BP Pulse Ox 98.9 F 94 H 17 123/64 97 05/03/18 15:56 05/03/18 15:56 05/03/18 15:56 05/03/18 15:56 05/03/18 15:56 Intake and Output: 05/03/18 05/04/18 18:59 06:59 Intake Total 400 Balance 400 - Medications Medications: Current Medications Albuterol/Ipratropium (Duoneb 3 Mg/0.5 Mg (3 Ml) Ud) 3 ml INH RQ6 SOTO Last Admin: 05/03/18 19:44 Dose: 3 ml Diphenhydramine HCl (Benadryl) 50 mg PO Q6 PRN PRN Reason: Extra pyramidal symptoms Last Admin: 05/03/18 15:46 Dose: 50 mg Fluoxetine HCl (Prozac) 20 mg PO DAILY [facility]OTO Last Admin: 05/03/18 10:04 Dose: 20 mg Haloperidol (Haldol) 5 mg PO Q8 PRN PRN Reason: Agitation Heparin Sodium (Porcine) (Heparin) 5,000 units SC Q12 SOTO Last Admin: 05/03/18 10:04 Dose: 5,000 units Ceftriaxone Sodium 1 gm/ (Sodium Chloride) 100 mls @ 100 mls/hr IVPB Q24H SOTO PRN Reason: Protocol Last Admin: 05/03/18 19:33 Dose: 100 mls/hr Vancomycin HCl 1,350 mg/ (Sodium Chloride) 250 mls @ 166.6 mls/hr IVPB Q12H SOTO PRN Reason: Protocol Nicotine (Nicoderm Cq) 1 patch TD DAILY [facility] Last Admin: 05/03/18 10:04 Dose: 1 patch Pantoprazole Sodium (Protonix Inj) 40 mg IVP DAILY [facility]OTO Last Admin: 05/03/18 10:04 Dose: 40 mg Trazodone HCl (Desyrel) 50 mg PO HS [facility] Last Admin: 05/02/18 21:36 Dose: 50 mg - Labs Labs: 05/03/18 08:32 05/03/18 08:42 - Constitutional Appears: No Acute Distress - Head Exam Head Exam: NORMAL INSPECTION - Eye Exam Eye Exam: EOMI - ENT Exam ENT Exam: Normal Oropharynx - Neck Exam Neck Exam: Normal Inspection - Respiratory Exam Respiratory Exam: Clear to Ausculation Bilateral - Cardiovascular Exam Cardiovascular Exam: REGULAR RHYTHM, +S1, +S2 - Extremities Exam Extremities Exam: Normal Capillary Refill. absent: Calf Tenderness, Pedal Edema - Neurological Exam Neurological Exam: Alert, Awake, CN II-XII Intact, Normal Gait, Oriented x3 ( SUGAR +VE ERYTHEMA INJ. SITE. R ELBOW +VE DRESSING IN PLACE .) - Psychiatric Exam Psychiatric exam: Normal Mood - Skin Skin Exam: Normal Color, Warm Assessment and Plan (1) Boil of upper arm and forearm Assessment & Plan: CONTINUE iv VANCOMYCIN 1 G EVERY 12 HOURLY 05/02/18. ADD iv ROCEPHIN 1 G EVERY 24 HOURLY FOR NOW 05/02/18 WHILE AWAITING REPEAT CULTURES. fOLLOW-UP VANCO TROUGH LEVELS PRIOR TO THE FOURTH DOSE AND KEEP THEM BETWEEN 10 AND 20. F/U CULTURE WOUND TO ADJUST ABX. F/U 3 PHASE BONE SCAN . [facility] PER SURGERY. Status: Acute (2) Cellulitis Status: Acute (3) Depression Status: Acute (4) Musculoskeletal pain Status: Acute
[2018-05-03] MEDS: Vancomycin 1,350 MG in Sodium Chloride 0.9% 500 ML IVPB SCH (20:36)
[2018-05-04] MEDS: Albuterol-Ipratrop 3 mg / 0.5 (3 ml) UD INH SCH ×4 (02:50→19:58)
--- NOTE | 2018-05-04 06:00 | CP.PCM.PN ---
Subjective - Date & Time of Evaluation Date of Evaluation: 05/04/18 Time of Evaluation: 06:00 - Subjective Subjective: PGY-[address] Hanson's service Pt seen and examined at bedside. Nursing reports no acute events overnight. Patient reports cellulitis at "right elbow" site has improved since admission, but complains that after vaccination given yesterday his "right upper arm" now swollen. Patient denies loss of sensation, but admits increased warmth/swelling in his right upper extremity. He denies fever, chills, chest pain, palpitations , abd pain, N/v overnight. Objective - Vital Signs/Intake and Output Vital Signs (last 24 hours): Temp Pulse Resp BP Pulse Ox 98.9 F 83 20 115/66 97 05/04/18 00:13 05/04/18 00:13 05/04/18 00:13 05/04/18 00:13 05/04/18 00:13 Intake and Output: 05/03/18 05/04/18 18:59 06:59 Intake Total 400 Balance 400 - Medications Medications: Current Medications Albuterol/Ipratropium (Duoneb 3 Mg/0.5 Mg (3 Ml) Ud) 3 ml INH RQ6 SOTO Last Admin: 05/04/18 02:50 Dose: Not Given Diphenhydramine HCl (Benadryl) 50 mg PO Q6 PRN PRN Reason: Extra pyramidal symptoms Last Admin: 05/03/18 15:46 Dose: 50 mg Fluoxetine HCl (Prozac) 20 mg PO DAILY [facility] Last Admin: 05/03/18 10:04 Dose: 20 mg Haloperidol (Haldol) 5 mg PO Q8 PRN PRN Reason: Agitation Heparin Sodium (Porcine) (Heparin) 5,000 units SC Q12 SOTO Last Admin: 05/03/18 21:41 Dose: 5,000 units Ceftriaxone Sodium 1 gm/ (Sodium Chloride) 100 mls @ 100 mls/hr IVPB Q24H SOTO PRN Reason: Protocol Last Admin: 05/03/18 19:33 Dose: 100 mls/hr Vancomycin HCl 1,350 mg/ (Sodium Chloride) 500 mls @ 250 mls/hr IVPB Q12H SOTO PRN Reason: Protocol Last Admin: 05/03/18 20:36 Dose: 250 mls/hr Nicotine (Nicoderm Cq) 1 patch TD DAILY [facility] Last Admin: 05/03/18 10:04 Dose: 1 patch Pantoprazole Sodium (Protonix Inj) 40 mg IVP DAILY [facility] Last Admin: 05/03/18 10:04 Dose: 40 mg Trazodone HCl (Desyrel) 50 mg PO HS [facility] Last Admin: 05/03/18 21:41 Dose: 50 mg - Labs Labs: 05/03/18 08:32 05/03/18 08:42 - Additional Findings Additional findings: - Constitutional Appears: Non-toxic, No Acute Distress - Head Exam Head Exam: ATRAUMATIC, NORMOCEPHALIC - Eye Exam Eye Exam: EOMI, Normal appearance, PERRL Pupil Exam: NORMAL ACCOMODATION - ENT Exam ENT Exam: Mucous Membranes Moist, Normal Exam - Neck Exam Neck Exam: absent: Lymphadenopathy - Respiratory Exam Respiratory Exam: Clear to Ausculation Bilateral, NORMAL BREATHING PATTERN. absent: Accessory Muscle Use, Rales, Rhonchi, Wheezes, Respiratory Distress - Cardiovascular Exam Cardiovascular Exam: REGULAR RHYTHM, +S1, +S2 - Extremities Exam Additional comments: Right UE - dressing on right elbow- improved cellulitis. Area of erythema surround wound with packing in center. tender to palpation. Right proximal upper extremity- warm, erythematous, edematous (worse around biceps area) - Neurological Exam Neurological Exam: Alert, Awake, CN II-XII Intact, Oriented x3 Neuro motor strength exam: Left Upper Extremity: 5, Right Upper Extremity: 5, Left Lower Extremity: 5, Right Lower Extremity: 5 - Psychiatric Exam Psychiatric exam: Normal Affect, Normal Mood - Skin Skin Exam: Dry, Normal Color, Warm Additional comments: except right upper extremity Assessment and Plan - Assessment and Plan (Free Text) Plan: Right Elbow Abscess/Cellulitis Surgery Consulted, Dr. Damian ID consulted, Dr. Murillo * abx per ID * Rocephin 1gm IVPB q24h (started 05/02/18) * Vanco 1,350mg IVPB q12h (started 05/02/18) Wound Culture 04/30/18: * MRSA Blood Culture 05/02/18: negative at 24 hours x 2 Wound Culture 05/02/18: Staph aureus Right Elbow X-ray 05/02/18: Soft tissue defect along the posterior proximal forearm. No demonstrated fracture, dislocation or evidence of periosteal reaction. Three Phase Bone Scan 05/03/18: No evidence of acute osseous process. No evidence of osteomyelitis. There soft tissue uptake adjacent to the proximal right radius and ulna. Meds: * Rocephin 1gm IVPB q24h (started 05/02/18) * Vanco 1,350mg IVPB q12h (started 05/02/18) * Benadryl 50mg PO q6h prn hx of Asthma * Duonebs 3mL INH q6h Psych hx hx of depression, schizophrenia and anxiety * Restarted home Prozac 20mg PO daily * Trazodone 50mg PO HS * Haldol 5mg PO q8h prn hx of Tobacco use * Nicotine patch 21mg/24hr TD daily Prophylactic Care * Heparin 5,000units SC q12h * Protonix 40mg IVP daily Case discussed with Dr. Tiffany aHnson All medical management per Dr. Tiffany Hanson
[2018-05-04] MEDS: Vancomycin 1,350 MG in Sodium Chloride 0.9% 500 ML IVPB SCH ×2 (09:35→21:20)
--- NOTE | 2018-05-04 20:36 | CP.PCM.PN ---
Subjective - Date & Time of Evaluation Date of Evaluation: 05/04/18 Time of Evaluation: 10:40 - Subjective Subjective: clinically same Objective - Vital Signs/Intake and Output Vital Signs (last 24 hours): Temp Pulse Resp BP Pulse Ox 98.1 F 89 20 129/72 97 05/04/18 15:00 05/04/18 15:00 05/04/18 15:00 05/04/18 15:00 05/04/18 15:00 - Medications Medications: Current Medications Albuterol/Ipratropium (Duoneb 3 Mg/0.5 Mg (3 Ml) Ud) 3 ml INH RQ6 SOTO Last Admin: 05/04/18 19:58 Dose: 3 ml Diphenhydramine HCl (Benadryl) 50 mg PO Q6 PRN PRN Reason: Extra pyramidal symptoms Last Admin: 05/03/18 15:46 Dose: 50 mg Fluoxetine HCl (Prozac) 20 mg PO DAILY [facility] Last Admin: 05/04/18 09:34 Dose: 20 mg Haloperidol (Haldol) 5 mg PO Q8 PRN PRN Reason: Agitation Heparin Sodium (Porcine) (Heparin) 5,000 units SC Q12 SOTO Last Admin: 05/04/18 09:34 Dose: 5,000 units Ceftriaxone Sodium 1 gm/ (Sodium Chloride) 100 mls @ 100 mls/hr IVPB Q24H SOTO PRN Reason: Protocol Last Admin: 05/04/18 17:19 Dose: 100 mls/hr Vancomycin HCl 1,350 mg/ (Sodium Chloride) 500 mls @ 250 mls/hr IVPB Q12H SOTO PRN Reason: Protocol Last Admin: 05/04/18 09:35 Dose: 250 mls/hr Nicotine (Nicoderm Cq) 1 patch TD DAILY [facility] [place] Last Admin: 05/04/18 09:34 Dose: 1 patch Pantoprazole Sodium (Protonix Inj) 40 mg IVP DAILY [facility] Last Admin: 05/04/18 09:35 Dose: 40 mg Trazodone HCl (Desyrel) 50 mg PO HS [facility] [place] Last Admin: 05/03/18 21:41 Dose: 50 mg - Labs Labs: 05/03/18 08:32 05/03/18 08:42
--- NOTE | 2018-05-04 20:46 | CP.PCM.PN ---
Subjective - Date & Time of Evaluation Date of Evaluation: 05/04/18 Time of Evaluation: 20:46 - Subjective Subjective: afebrile PAIN RT. ELBOW IMPROVING. lESS DRAINAGE. +VE DRESSING IN PLACE. Objective - Vital Signs/Intake and Output Vital Signs (last 24 hours): Temp Pulse Resp BP Pulse Ox 98.1 F 89 20 129/72 97 05/04/18 15:00 05/04/18 15:00 05/04/18 15:00 05/04/18 15:00 05/04/18 15:00 - Medications Medications: Current Medications Albuterol/Ipratropium (Duoneb 3 Mg/0.5 Mg (3 Ml) Ud) 3 ml INH RQ6 [facility] Last Admin: 05/04/18 19:58 Dose: 3 ml Diphenhydramine HCl (Benadryl) 50 mg PO Q6 PRN PRN Reason: Extra pyramidal symptoms Last Admin: 05/03/18 15:46 Dose: 50 mg Fluoxetine HCl (Prozac) 20 mg PO DAILY [facility] Last Admin: 05/04/18 09:34 Dose: 20 mg Haloperidol (Haldol) 5 mg PO Q8 PRN PRN Reason: Agitation Heparin Sodium (Porcine) (Heparin) 5,000 units SC Q12 SOTO Last Admin: 05/04/18 09:34 Dose: 5,000 units Ceftriaxone Sodium 1 gm/ (Sodium Chloride) 100 mls @ 100 mls/hr IVPB Q24H SOTO PRN Reason: Protocol Last Admin: 05/04/18 17:19 Dose: 100 mls/hr Vancomycin HCl 1,350 mg/ (Sodium Chloride) 500 mls @ 250 mls/hr IVPB Q12H SOTO PRN Reason: Protocol Last Admin: 05/04/18 09:35 Dose: 250 mls/hr Nicotine (Nicoderm Cq) 1 patch TD DAILY [facility] Last Admin: 05/04/18 09:34 Dose: 1 patch Pantoprazole Sodium (Protonix Inj) 40 mg IVP DAILY [facility] Last Admin: 05/04/18 09:35 Dose: 40 mg Trazodone HCl (Desyrel) 50 mg PO HS [facility] Last Admin: 05/03/18 21:41 Dose: 50 mg - Labs Labs: 05/03/18 08:32 05/03/18 08:42 - Constitutional Appears: No Acute Distress - Head Exam Head Exam: NORMAL INSPECTION - Eye Exam Eye Exam: EOMI, PERRL - ENT Exam ENT Exam: Normal Oropharynx - Neck Exam Neck Exam: Normal Inspection - Respiratory Exam Respiratory Exam: Clear to Ausculation Bilateral, NORMAL BREATHING PATTERN - Cardiovascular Exam Cardiovascular Exam: REGULAR RHYTHM, +S1, +S2 - GI/Abdominal Exam GI & Abdominal Exam: Soft, Normal Bowel Sounds. absent: Organomegaly - Extremities Exam Extremities Exam: Normal Capillary Refill. absent: Calf Tenderness, Pedal Edema - Neurological Exam Neurological Exam: Awake, CN II-XII Intact, Normal Gait, Oriented x3, Reflexes Normal (RIGHT ELBOW DRESSING IN PLACE. dRESSING DRY AND CLEAN.) - Psychiatric Exam Psychiatric exam: Normal Mood - Skin Skin Exam: Dry, Warm Assessment and Plan (1) Boil of upper arm and forearm Assessment & Plan: INCREASED iv VANCOMYCIN 1350 MG EVERY 12 HOURLY 05/02/18. CONTINUE iv ROCEPHIN 1 G EVERY 24 HOURLY FOR NOW 05/02/18 fOLLOW-UP VANCO TROUGH LEVELS PRIOR TO THE FOURTH DOSE AND KEEP THEM BETWEEN 10 AND 20. CULTURE WOUND +VE STAPH [facility] 3 PHASE BONE SCAN -VE FOR OM. +VE FOR CELLULITIS. LWC PER SURGERY. Status: Acute (2) Cellulitis Assessment & Plan: IMPROVING. cONTINUE ANTIBIOTICS. Status: Acute (3) Depression Status: Acute (4) Musculoskeletal pain Assessment & Plan: ANALGESICS PER PMD. Status: Acute
[2018-05-05] MEDS: Albuterol-Ipratrop 3 mg / 0.5 (3 ml) UD INH SCH ×4 (01:49→19:16)
[2018-05-05 08:31] LABS: BASO % 0.8 % (0.0-2.0); EOS # 0.1 K/uL (0.0-0.7); EOS % 2.4 % (0.0-4.0); HEMOGLOBIN 13.5 g/dL (12.0-18.0); LYMPH # 1.6 K/uL (1.0-4.3); MEAN CELL VOLUME 88.8 fL (80.0-94.0); MEAN CORPUSCULAR HEMOGLOBIN 30.9 pg (27.0-31.0); MEAN CORPUSCULAR HGB CONC 34.8 g/dL (33.0-37.0); MEAN PLATELET VOLUME 8.8 fL (7.2-11.7); MONO # 0.6 K/uL (0.0-0.8); MONO % 10.4 % (0.0-10.0); NEUT # 3.3 K/uL (1.8-7.0); NEUT % 58.4 % (50.0-75.0); NRBC % 0.1 % (0.0-2.0); RBC 4.38 Mil/uL (4.40-5.90); RED CELL DISTRIBUTION WIDTH 13.3 % (11.5-14.5); WHITE BLOOD COUNT 5.6 K/uL (4.8-10.8)
[2018-05-05 08:49] LABS: ALB/GLOB RATIO 1.4 (1.0-2.1); ALBUMIN 3.9 g/dL (3.5-5.0); ALT/SGPT 33 U/L (21-72); AST/SGOT 19 U/L (17-59); BLOOD UREA NITROGEN 11 mg/dL (9-20); CALCIUM 9.1 mg/dl (8.6-10.4); GFR AFRICAN-AMERICAN > 60; GFR NON-AFRICAN AMERICAN > 60
[2018-05-05] MEDS: Vancomycin 1,350 MG in Sodium Chloride 0.9% 500 ML IVPB SCH ×2 (09:33→21:04)
--- NOTE | 2018-05-05 14:58 | CP.PCM.PN ---
Subjective - Date & Time of Evaluation Date of Evaluation: 05/05/18 Time of Evaluation: 09:15 - Subjective Subjective: clinically same Objective - Vital Signs/Intake and Output Vital Signs (last 24 hours): Temp Pulse Resp BP Pulse Ox 97.6 F 60 20 114/64 97 05/05/18 07:00 05/05/18 07:00 05/05/18 07:00 05/05/18 07:00 05/05/18 07:00 - Medications Medications: Current Medications Albuterol/Ipratropium (Duoneb 3 Mg/0.5 Mg (3 Ml) Ud) 3 ml INH RQ6 [facility] Last Admin: 05/05/18 13:36 Dose: 3 ml Diphenhydramine HCl (Benadryl) 50 mg PO Q6 PRN PRN Reason: Extra pyramidal symptoms Last Admin: 05/03/18 15:46 Dose: 50 mg Fluoxetine HCl (Prozac) 20 mg PO DAILY [facility] Last Admin: 05/05/18 09:32 Dose: 20 mg Haloperidol (Haldol) 5 mg PO Q8 PRN PRN Reason: Agitation Heparin Sodium (Porcine) (Heparin) 5,000 units SC Q12 [facility] Last Admin: 05/05/18 09:31 Dose: 5,000 units Ceftriaxone Sodium 1 gm/ (Sodium Chloride) 100 mls @ 100 mls/hr IVPB Q24H [facility] PRN Reason: Protocol Last Admin: 05/04/18 17:19 Dose: 100 mls/hr Vancomycin HCl 1,350 mg/ (Sodium Chloride) 500 mls @ 250 mls/hr IVPB Q12H [facility] PRN Reason: Protocol Last Admin: 05/05/18 09:33 Dose: 250 mls/hr Nicotine (Nicoderm Cq) 1 patch TD DAILY [facility] Last Admin: 05/05/18 09:32 Dose: 1 patch Pantoprazole Sodium (Protonix Inj) 40 mg IVP DAILY [facility] Last Admin: 05/05/18 09:31 Dose: 40 mg Trazodone HCl (Desyrel) 50 mg PO HS [facility] Last Admin: 05/04/18 21:21 Dose: 50 mg - Labs Labs: 05/05/18 08:21 05/05/18 08:21 - Constitutional Appears: Well - Head Exam Head Exam: ATRAUMATIC, NORMAL INSPECTION, NORMOCEPHALIC - Eye Exam Eye Exam: EOMI, Normal appearance, PERRL Pupil Exam: NORMAL ACCOMODATION, PERRL - ENT Exam ENT Exam: Mucous Membranes Moist, Normal Exam - Neck Exam Neck Exam: Full ROM, Normal Inspection. absent: Lymphadenopathy - Respiratory Exam Respiratory Exam: Decreased Breath Sounds - Cardiovascular Exam Cardiovascular Exam: REGULAR RHYTHM, +S1, +S2 - GI/Abdominal Exam GI & Abdominal Exam: Soft, Diminished Bowel Sounds - Rectal Exam Rectal Exam: Deferred
[2018-05-06] MEDS: Albuterol-Ipratrop 3 mg / 0.5 (3 ml) UD INH SCH ×4 (01:03→21:00)
[2018-05-06] MEDS: Vancomycin 1,350 MG in Sodium Chloride 0.9% 500 ML IVPB SCH ×2 (09:14→21:09)
--- NOTE | 2018-05-06 18:38 | CP.PCM.PN ---
Subjective - Date & Time of Evaluation Date of Evaluation: 05/06/18 Time of Evaluation: 18:35 - Subjective Subjective: CHART REVIEWED. PT SEEN AND EXAMINED, COVERING DR Tiffany VELASCO. PT ALERT, FEELS BETTER., LESS PAIN RIGHT ELBOW. ROS; OTHERWISE NEG Objective - Vital Signs/Intake and Output Vital Signs (last 24 hours): Temp Pulse Resp BP Pulse Ox 98.0 F 86 18 107/56 L 96 05/06/18 15:09 05/06/18 15:09 05/06/18 15:09 05/06/18 15:09 05/06/18 15:09 - Medications Medications: Current Medications Albuterol/Ipratropium (Duoneb 3 Mg/0.5 Mg (3 Ml) Ud) 3 ml INH RQ6 SOTO Last Admin: 05/06/18 13:28 Dose: 3 ml Diphenhydramine HCl (Benadryl) 50 mg PO Q6 PRN PRN Reason: Extra pyramidal symptoms Last Admin: 05/03/18 15:46 Dose: 50 mg Fluoxetine HCl (Prozac) 20 mg PO DAILY SOTO Last Admin: 05/06/18 09:14 Dose: 20 mg Haloperidol (Haldol) 5 mg PO Q8 PRN PRN Reason: Agitation Ceftriaxone Sodium 1 gm/ (Sodium Chloride) 100 mls @ 100 mls/hr IVPB Q24H SOTO PRN Reason: Protocol Last Admin: 05/05/18 17:33 Dose: 100 mls/hr Vancomycin HCl 1,350 mg/ (Sodium Chloride) 500 mls @ 250 mls/hr IVPB Q12H SOTO PRN Reason: Protocol Last Admin: 05/06/18 09:14 Dose: 250 mls/hr Nicotine (Nicoderm Cq) 1 patch TD DAILY SOTO Last Admin: 05/06/18 09:14 Dose: 1 patch Pantoprazole Sodium (Protonix Inj) 40 mg IVP DAILY SOTO Last Admin: 05/06/18 09:14 Dose: 40 mg Trazodone HCl (Desyrel) 50 mg PO HS SOTO Last Admin: 05/05/18 21:04 Dose: 50 mg - Labs Labs: 05/05/18 08:21 05/05/18 08:21 - Constitutional Appears: No Acute Distress - Head Exam Head Exam: ATRAUMATIC, NORMOCEPHALIC - Eye Exam Eye Exam: EOMI, Normal appearance - ENT Exam ENT Exam: Mucous Membranes Moist - Neck Exam Neck Exam: Normal Inspection - Respiratory Exam Respiratory Exam: absent: Wheezes, Respiratory Distress - Cardiovascular Exam Cardiovascular Exam: RRR, +S1, +S2 - GI/Abdominal Exam GI & Abdominal Exam: Soft. absent: Tenderness - Rectal Exam Rectal Exam: Deferred - Extremities Exam Extremities Exam: absent: Calf Tenderness, Pedal Edema Additional comments: RIGHT ELBOW ULCER AND ERYTHEMA. - Back Exam Back Exam: absent: CVA tenderness (L), CVA tenderness (R) - Neurological Exam Neurological Exam: Alert, Awake, CN II-XII Intact, Oriented x3 - Psychiatric Exam Psychiatric exam: Normal Mood - Skin Skin Exam: absent: Rash Assessment and Plan (1) Schizophrenia Status: Acute (2) Abscess Status: Acute (3) Tobacco abuse Status: Acute (4) Alcohol abuse Status: Acute (5) Asthma Status: Acute (6) Anxiety Status: Acute - Assessment and Plan (Free Text) Assessment: S/P I & D RUE ABSCESS. CONT IV AB PER ID. CONT WOUND CARE. XRAYS REVIEWED. DISCUSSED WITH STAFF.
--- NOTE | 2018-05-06 21:04 | CARD ---
APPROVED REPORT Date of service: 05/05/2018 EXAM: Two-dimensional and M-mode echocardiogram with Doppler and color Doppler. Other Information Quality : FairRhythm : NSR INDICATION Infection: ETOH,POSITIVE BC,WOUND INFECTION M-Mode DIMENSIONS RVDd1.72 (2.1-3.2cm)Left Atrium (MM)3.19 (2.5-4.0cm) IVSd1.07 (0.7-1.1cm)Aortic Root2.77 (2.2-3.7cm) LVDd4.72 (4.0-5.6cm)Aortic Cusp Exc.1.92 (1.5-2.0cm) PWd1.11 (0.7-1.1cm)FS (%) 32 % LVDs3.22 (2.0-3.8cm)LVEF (%)60 (>50%) Mitral Valve MV E Elunzzpl50.0cm/sMV A Tpumgbhb32.2cm/sE/A ratio2.6 TDI E/Lateral E'0.0E/Medial E'0.0 Tricuspid Valve TR Peak Iqwfqzzq708jd/sTR Peak Gr.[id number] LEFT VENTRICLE The left ventricle is normal size. There is normal left ventricular wall thickness. Left ventricle systolic function is normal. The Ejection Fraction is 60-65%. There is normal LV segmental wall motion. The left ventricular diastolic function is normal. RIGHT VENTRICLE The right ventricle is normal size. There is normal right ventricular wall thickness. The right ventricular systolic function is normal. ATRIA The left atrium size is normal. The right atrium size is normal. The interatrial septum is intact with no evidence for an atrial septal defect. AORTIC VALVE The aortic valve is normal in structure. No aortic regurgitation is present. There is no aortic valvular stenosis. There is no aortic valvular vegetation. MITRAL VALVE The mitral valve is normal in structure. There is no evidence of mitral valve prolapse. There is no mitral valve stenosis. There is no mitral valve regurgitation noted. TRICUSPID VALVE The tricuspid valve is normal in structure. There is trace tricuspid regurgitation. Right ventricular systolic pressure is estimated at less than 30 mmHg. There is no pulmonary hypertension. PULMONIC VALVE The pulmonic valve is not well visualized. There is no pulmonic valvular regurgitation. GREAT VESSELS The aortic root is normal in size. PERICARDIAL EFFUSION There is no significant pericardial effusion. <Conclusion> Left ventricle systolic function is normal. The Ejection Fraction is 60-65%. No aortic regurgitation is present. There is no mitral valve regurgitation noted. There is trace tricuspid regurgitation. There is no pulmonary hypertension. There is no pulmonic valvular regurgitation.
--- NOTE | 2018-05-06 23:31 | CP.PCM.PN ---
Subjective - Date & Time of Evaluation Date of Evaluation: 05/06/18 Time of Evaluation: 23:31 - Subjective Subjective: AFEBRILE, fEELING BETTER. S/P I & D RIGHT ELBOW. DRESSING IN PLACE. RIGHT UPPER ARM ? INJ .SITE LESS TENDER, IMPROVING. ROM OK. REPORTED PT GOT PNEMOVAX RT DELTOID ON 05/02/18 TDAP GIVEN LT. ARM ON 05/02/18 SPOKE WITH CHARGE NURSE MS LUNDBERG Objective - Vital Signs/Intake and Output Vital Signs (last 24 hours): Temp Pulse Resp BP Pulse Ox 98.0 F 86 18 107/56 L 96 05/06/18 15:09 05/06/18 15:09 05/06/18 15:09 05/06/18 15:09 05/06/18 15:09 - Medications Medications: Current Medications Albuterol/Ipratropium (Duoneb 3 Mg/0.5 Mg (3 Ml) Ud) 3 ml INH RQ6 SOTO Last Admin: 05/06/18 21:00 Dose: 3 ml Diphenhydramine HCl (Benadryl) 50 mg PO Q6 PRN PRN Reason: Extra pyramidal symptoms Last Admin: 05/03/18 15:46 Dose: 50 mg Fluoxetine HCl (Prozac) 20 mg PO DAILY SOTO Last Admin: 05/06/18 09:14 Dose: 20 mg Haloperidol (Haldol) 5 mg PO Q8 PRN PRN Reason: Agitation Ceftriaxone Sodium 1 gm/ (Sodium Chloride) 100 mls @ 100 mls/hr IVPB Q24H SOTO PRN Reason: Protocol Last Admin: 05/06/18 18:00 Dose: 100 mls/hr Vancomycin HCl 1,350 mg/ (Sodium Chloride) 500 mls @ 250 mls/hr IVPB Q12H SOTO PRN Reason: Protocol Last Admin: 05/06/18 21:09 Dose: 250 mls/hr Nicotine (Nicoderm Cq) 1 patch TD DAILY SOTO Last Admin: 05/06/18 09:14 Dose: 1 patch Pantoprazole Sodium (Protonix Inj) 40 mg IVP DAILY SOTO Last Admin: 05/06/18 09:14 Dose: 40 mg Trazodone HCl (Desyrel) 50 mg PO HS SOTO Last Admin: 05/06/18 21:09 Dose: 50 mg - Labs Labs: 05/05/18 08:21 05/05/18 08:21 - Constitutional Appears: No Acute Distress - Head Exam Head Exam: NORMAL INSPECTION - Eye Exam Eye Exam: EOMI, PERRL - ENT Exam ENT Exam: Normal Exam, Normal Oropharynx - Neck Exam Neck Exam: Normal Inspection - Respiratory Exam Respiratory Exam: Clear to Ausculation Bilateral - Cardiovascular Exam Cardiovascular Exam: REGULAR RHYTHM, +S1, +S2 - GI/Abdominal Exam GI & Abdominal Exam: Soft, Normal Bowel Sounds. absent: Organomegaly - Extremities Exam Extremities Exam: Normal Capillary Refill (RIGHT ELBOW ULCER COVERED WITH DRY DRESSING IN PLACE. RANGE OF MOTION GOOD AT ELBOW). absent: Calf Tenderness, Pedal Edema - Psychiatric Exam Psychiatric exam: Normal Mood - Skin Skin Exam: Dry, Warm Assessment and Plan (1) Boil of upper arm and forearm Assessment & Plan: IMPROVING. ULCER -GRANULATING. ON IV ABX. WOUND CULTURE +VE MRSA. CONTACT PRECAUTIONS. IF CLEARED BY SURGERY, PATIENT CAN BE SWITCHED TO PO VIBRAMYCIN 100 MG TWICE A DAY X 10 DAYS. Status: Acute (2) Cellulitis Assessment & Plan: IMPROVING. Status: Acute (3) Depression Assessment & Plan: ON MEDS Status: Acute (4) Musculoskeletal pain Status: Acute
[2018-05-07 00:38] VITALS: RESP 20; O2SAT 97
[2018-05-07] MEDS: Albuterol-Ipratrop 3 mg / 0.5 (3 ml) UD INH SCH ×3 (01:34→14:30)
[2018-05-07 08:07] VITALS: BP 112/69; PULSE 67; TEMP 97.6
[2018-05-07] MEDS: Vancomycin 1,350 MG in Sodium Chloride 0.9% 500 ML IVPB SCH (09:05)
--- NOTE | 2018-05-07 09:55 | CP.PCM.PN ---
Subjective - Date & Time of Evaluation Date of Evaluation: 05/07/18 Time of Evaluation: 09:46 - Subjective Subjective: 38M seen and evaluated this AM. No acute events overnight. No complaint of pain. Denies f/c, n/v/d, SOB, CP, or urinary symptoms. Objective - Vital Signs/Intake and Output Vital Signs (last 24 hours): Temp Pulse Resp BP Pulse Ox 97.6 F 67 20 112/69 97 05/07/18 07:00 05/07/18 07:00 05/07/18 07:00 05/07/18 07:00 05/07/18 07:00 - Medications Medications: Current Medications Albuterol/Ipratropium (Duoneb 3 Mg/0.5 Mg (3 Ml) Ud) 3 ml INH RQ6 [facility] Last Admin: 05/07/18 07:53 Dose: Not Given Diphenhydramine HCl (Benadryl) 50 mg PO Q6 PRN PRN Reason: Extra pyramidal symptoms Last Admin: 05/03/18 15:46 Dose: 50 mg Fluoxetine HCl (Prozac) 20 mg PO DAILY [facility] Last Admin: 05/07/18 09:05 Dose: 20 mg Haloperidol (Haldol) 5 mg PO Q8 PRN PRN Reason: Agitation Ceftriaxone Sodium 1 gm/ (Sodium Chloride) 100 mls @ 100 mls/hr IVPB Q24H SOTO PRN Reason: Protocol Last Admin: 05/06/18 18:00 Dose: 100 mls/hr Vancomycin HCl 1,350 mg/ (Sodium Chloride) 500 mls @ 250 mls/hr IVPB Q12H SOTO PRN Reason: Protocol Last Admin: 05/07/18 09:05 Dose: 250 mls/hr Nicotine (Nicoderm Cq) 1 patch TD DAILY [facility] Last Admin: 05/07/18 09:05 Dose: 1 patch Pantoprazole Sodium (Protonix Inj) 40 mg IVP DAILY SOTO Last Admin: 05/07/18 09:05 Dose: 40 mg Trazodone HCl (Desyrel) 50 mg PO HS [facility] Last Admin: 05/06/18 21:09 Dose: 50 mg - Labs Labs: 05/05/18 08:21 05/05/18 08:21 - Constitutional Appears: Well, Non-toxic, No Acute Distress - Head Exam Head Exam: ATRAUMATIC, NORMAL INSPECTION, NORMOCEPHALIC - Eye Exam Eye Exam: EOMI, Normal appearance - ENT Exam ENT Exam: Mucous Membranes Moist, Normal Exam - Respiratory Exam Respiratory Exam: Clear to Ausculation Bilateral, NORMAL BREATHING PATTERN - Cardiovascular Exam Cardiovascular Exam: REGULAR RHYTHM, +S1, +S2. absent: Murmur - GI/Abdominal Exam GI & Abdominal Exam: Soft, Normal Bowel Sounds. absent: Tenderness - Extremities Exam Extremities Exam: Normal Inspection Additional comments: dressings c/d/i - Neurological Exam Neurological Exam: Alert, Awake, Oriented x3 - Psychiatric Exam Psychiatric exam: Normal Affect, Normal Mood - Skin Additional comments: dressings c/d/i on RUE Assessment and Plan - Assessment and Plan (Free Text) Assessment: 38M w/ right elbow abscess Plan: dressing changes w/ metahoney - wound improving pain is controlled IV Abx per ID pt instructed on how to take care of wound and dressings no further surgical intervention needed at this time please reconsult as needed Freddie Salazar PGY1
--- NOTE | 2018-05-07 14:22 | CP.PCM.PN ---
Subjective - Date & Time of Evaluation Date of Evaluation: 05/07/18 Time of Evaluation: 14:22 - Subjective Subjective: PATIENT WAS ADMITTED FOR RIGHT ELBOW CELLULITIS AAOX3 / DENEIS CHEST PAIN OR SOB NO SIGN OF DISTRESS NOTED Objective - Vital Signs/Intake and Output Vital Signs (last 24 hours): Temp Pulse Resp BP Pulse Ox 97.6 F 67 20 112/69 97 05/07/18 07:00 05/07/18 07:00 05/07/18 07:00 05/07/18 07:00 05/07/18 07:00 - Medications Medications: Current Medications Albuterol/Ipratropium (Duoneb 3 Mg/0.5 Mg (3 Ml) Ud) 3 ml INH RQ6 SOTO Last Admin: 05/07/18 07:53 Dose: Not Given Diphenhydramine HCl (Benadryl) 50 mg PO Q6 PRN PRN Reason: Extra pyramidal symptoms Last Admin: 05/03/18 15:46 Dose: 50 mg Fluoxetine HCl (Prozac) 20 mg PO DAILY SOTO Last Admin: 05/07/18 09:05 Dose: 20 mg Haloperidol (Haldol) 5 mg PO Q8 PRN PRN Reason: Agitation Ceftriaxone Sodium 1 gm/ (Sodium Chloride) 100 mls @ 100 mls/hr IVPB Q24H SOTO PRN Reason: Protocol Last Admin: 05/06/18 18:00 Dose: 100 mls/hr Vancomycin HCl 1,350 mg/ (Sodium Chloride) 500 mls @ 250 mls/hr IVPB Q12H SOTO PRN Reason: Protocol Last Admin: 05/07/18 09:05 Dose: 250 mls/hr Nicotine (Nicoderm Cq) 1 patch TD DAILY SOTO Last Admin: 05/07/18 09:05 Dose: 1 patch Pantoprazole Sodium (Protonix Inj) 40 mg IVP DAILY SOTO Last Admin: 05/07/18 09:05 Dose: 40 mg Trazodone HCl (Desyrel) 50 mg PO HS SOTO Last Admin: 05/06/18 21:09 Dose: 50 mg - Labs Labs: 05/05/18 08:21 05/05/18 08:21 Assessment and Plan - Assessment and Plan (Free Text) Assessment: PATIENT SEEN AND EXAMINED AT THE BEDSIDE LUNG SOUND CLEAR TERRY S/P I& D RIGHT ELBOW ABSCESS., CONT DRESSING CHANGES PER SURG., CONT PO AB PER ID. FOLLOW UP WITH DR Tiffany VELASCO IN HIS OFFICE I 1 WEEK ---CALL FOR YOUR APPOINTMENT FOLLOW UP WITH DR LOO IN HER OFFICE IN 1 WEEK ---CALL FOR APPOINTMENT CONTINUE ALL YOUR HOME MEDICATION NEW ANTIBIOTIC MEDICATION GIVEN VIBRAMYCIN 100 MG BY MOUTH TWICE A DAY FOR 10 DAYS WOUND CARE INSTRUCTED/ PT FEELS FINE, WANTS TO GO HOME., TRAINED TO DO DRESSING CHANGES PER STAFF ACTIVITY TOLERATED CALL DR Tiffayn VELASCO OR GO TO THE EMERGENCY ROOM IF SYMPTOMS RETURN OR WORSENING
--- NOTE | 2018-05-07 14:36 | CP.PCM.PN ---
Subjective - Date & Time of Evaluation Date of Evaluation: 05/07/18 Time of Evaluation: 14:32 - Subjective Subjective: COVERING DR Tiffany VELASCO PT FEELS FINE, WANTS TO GO HOME., TRAINED TO DO DRESSING CHANGES PER STAFF. ROS; OTHERWISE NEG. Objective - Vital Signs/Intake and Output Vital Signs (last 24 hours): Temp Pulse Resp BP Pulse Ox 97.6 F 67 20 112/69 97 05/07/18 07:00 05/07/18 07:00 05/07/18 07:00 05/07/18 07:00 05/07/18 07:00 - Medications Medications: Current Medications Albuterol/Ipratropium (Duoneb 3 Mg/0.5 Mg (3 Ml) Ud) 3 ml INH RQ6 SOTO Last Admin: 05/07/18 14:30 Dose: Not Given Diphenhydramine HCl (Benadryl) 50 mg PO Q6 PRN PRN Reason: Extra pyramidal symptoms Last Admin: 05/03/18 15:46 Dose: 50 mg Fluoxetine HCl (Prozac) 20 mg PO DAILY SOTO Last Admin: 05/07/18 09:05 Dose: 20 mg Haloperidol (Haldol) 5 mg PO Q8 PRN PRN Reason: Agitation Ceftriaxone Sodium 1 gm/ (Sodium Chloride) 100 mls @ 100 mls/hr IVPB Q24H SOTO PRN Reason: Protocol Last Admin: 05/06/18 18:00 Dose: 100 mls/hr Vancomycin HCl 1,350 mg/ (Sodium Chloride) 500 mls @ 250 mls/hr IVPB Q12H SOTO PRN Reason: Protocol Last Admin: 05/07/18 09:05 Dose: 250 mls/hr Nicotine (Nicoderm Cq) 1 patch TD DAILY [facility] BEDS AT [facility] Last Admin: 05/07/18 09:05 Dose: 1 patch Pantoprazole Sodium (Protonix Inj) 40 mg IVP DAILY SOTO Last Admin: 05/07/18 09:05 Dose: 40 mg Trazodone HCl (Desyrel) 50 mg PO HS COUNTS INCLUDE 234 BEDS AT THE [facility] Last Admin: 05/06/18 21:09 Dose: 50 mg - Labs Labs: 05/05/18 08:21 05/05/18 08:21 - Constitutional Appears: No Acute Distress - Head Exam Head Exam: ATRAUMATIC, NORMOCEPHALIC - Eye Exam Eye Exam: EOMI, Normal appearance - ENT Exam ENT Exam: Mucous Membranes Moist - Neck Exam Neck Exam: Normal Inspection - Respiratory Exam Respiratory Exam: absent: Wheezes, Respiratory Distress - Cardiovascular Exam Cardiovascular Exam: RRR, +S1, +S2 - GI/Abdominal Exam GI & Abdominal Exam: Soft. absent: Tenderness - Rectal Exam Rectal Exam: Deferred - Extremities Exam Extremities Exam: absent: Calf Tenderness, Pedal Edema Additional comments: RUE +CLEAN ULCERATION ELBOW. DECREASED EDEMA - Back Exam Back Exam: absent: CVA tenderness (L), CVA tenderness (R) - Neurological Exam Neurological Exam: Alert, Awake, CN II-XII Intact, Oriented x3 - Psychiatric Exam Psychiatric exam: Normal Mood - Skin Skin Exam: absent: Rash Assessment and Plan (1) Schizophrenia Status: Acute (2) Abscess Status: Acute (3) Tobacco abuse Status: Acute (4) Alcohol abuse Status: Acute (5) Asthma Status: Acute (6) Anxiety Status: Acute - Assessment and Plan (Free Text) Assessment: S/P I& D RIGHT ELBOW ABSCESS., CONT DRESSING CHANGES PER SURG., CONT PO AB PER ID., CLEARED FOR D/C. PSYCH F/U OUTPT. CXR REVIEWED. DISCUSSED WITH STAFF AT LENGTH. TIME SPENT 40 MIN.
[2018-05-08] MEDS ORDERED: Pantoprazole 40 mg EC Tab PO SCH (10:00)
== END 2018-05-07 15:09 | disposition home or self-care (01) | DRG 277 ==
LOC: C.ER 11:33 → C.9E 12:51 → C.5S 14:50
PROVIDERS: ADMIT Internal Medicine Nephrology; ATTEND Internal Medicine Nephrology
PROC: 0H9EXZZ Drainage of Left Lower Arm Skin, External Approach (ICD-10-PCS; principal; 2018-05-02)
DX: L03.113 Cellulitis of right upper limb (principal); L02.423 Furuncle of right upper limb; F20.9 Schizophrenia, unspecified; L02.413 Cutaneous abscess of right upper limb; B95.62 Methicillin resistant Staphylococcus aureus infection as the cause of diseases classified elsewhere; F43.10 Post-traumatic stress disorder, unspecified; F31.9 Bipolar disorder, unspecified; F10.10 Alcohol abuse, uncomplicated; F17.210 Nicotine dependence, cigarettes, uncomplicated; J45.909 Unspecified asthma, uncomplicated